=== PATIENT | male | born 1995 | race African-American/Black ===

== ENCOUNTER 2019-12-26 16:34 | Emergency (ER) | payer MEDICAID ==
[~2019-12-26] VITALS: Ht 188 cm; Wt 90.7 kg
[2019-12-26 17:00] VITALS: BP 113/68
[2019-12-26] MEDS ORDERED: Bacitracin Oint UD TOPIC ONE (17:00)
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
[2019-12-26] MEDS ORDERED: IBUPROFEN600 M1 ORAL (17:05)
[2019-12-26] MEDS ORDERED: BACITRACIN15 GM TOPIC (17:05)
[2019-12-26 17:24] VITALS: BP 116/72
== END 2019-12-26 17:24 | disposition home or self-care (01) ==
LOC: EMR 16:58
DX: L03.032 Cellulitis of left toe (principal); M54.2 Cervicalgia; V43.52XA Car driver injured in collision with other type car in traffic accident, initial encounter; Y92.411 Interstate highway as the place of occurrence of the external cause; L60.0 Ingrowing nail; S00.81XA Abrasion of other part of head, initial encounter; S80.812A Abrasion, left lower leg, initial encounter
CPT/HCPCS: 99282

== ENCOUNTER 2020-02-27 15:11 | Emergency (ER) | payer MEDICAID, OTHER ==
[~2020-02-27] VITALS: Ht 188 cm; Wt 95.3 kg
[~2020-02-27 15:11] MED LIST: BACITRACIN15 GM TOPIC; IBUPROFEN600 M1 ORAL
--- NOTE | 2020-02-27 15:35 | Emergency Room Report ---
History of Present Illness General Chief Complaint: Skin Rash/Abscess Source: Patient Present Illness HPI 24-year-old male with no signal past medical history here complaining of swelling and pain perianal x2 days. Denies any fall or injury, shaving of the area. Denies any bleeding, constipation, diarrhea. Has not taken medication for symptom relief. Denies fever and chills. Minimal swelling tenderness to palpation noted right-sided buttocks perianal. No abscess formation noted. 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 COVID-19 Screening: Negative COVID-19 COVID-19 Testing Source: drive thru Patient History Past Medical History: see triage record Past Surgical History: none Pertinent Family History: none Immunizations: UTD Reviewed Nursing Documentation: PMH: Agreed; PSxH: Agreed Nursing Documentation-PMH Past Medical History: No Stated History Review of Systems All Other Systems: negative except mentioned in HPI Physical Exam Vital Signs Date Time Temp Pulse Resp B/P (MAP) Pulse Ox O2 Delivery O2 Flow Rate FiO2 02/27/20 15:13 98.1 85 19 138/73 (94) 98 Room Air Sp02 EP Interpretation: reviewed, normal General Appearance: no apparent distress, alert, GCS 15, non-toxic Head: normocephalic, atraumatic Eyes: bilateral eye normal inspection, bilateral eye PERRL ENT: hearing grossly normal, normal pharynx, no angioedema, normal voice Neck: full range of motion, supple/symm/no masses Respiratory: chest non-tender, lungs clear, normal breath sounds, speaking full sentences Cardiovascular #1: regular rate, rhythm, no edema Cardiovascular #2: 2+ carotid (R), 2+ carotid (L), 2+ radial (R), 2+ radial (L), 2+ dorsalis pedis (R), 2+ dorsalis pedis (L) Gastrointestinal: normal bowel sounds, non tender, soft, non-distended, no guarding, no rebound Rectal: other - Perianal right-sided cellulitis Genitourinary: no CVA tenderness Musculoskeletal: back normal Neurologic: alert, motor strength/tone normal, oriented x3, sensory intact, responsive, speech normal Psychiatric: judgement/insight normal, memory normal, mood/affect normal, no suicidal/homicidal ideation Skin: no rash Lymphatic: no adenopathy Medical Decision Making PA Attestation All diagnosis and treatment plans were discussed and reviewed by my supervising physician Dr. Pearce Diagnostic Impression: Primary Impression: Cellulitis ER Course 24-year-old male with no signal past medical history here complaining of swelling and pain perianal x2 days. Denies any fall or injury, shaving of the area. Denies any bleeding, constipation, diarrhea. Has not taken medication for symptom relief. Denies fever and chills. Minimal swelling tenderness to palpation noted right-sided buttocks perianal. No abscess formation noted. Ddx considered but are not limited to : Cellulitis, Helder cyst, Helder abscess,, superficial infection, abscess Vital signs: are WNL, pt. is afebrile H&PE are most consistent with:cellulitis ORDERS:Bactrim DS, Keflex, Ibuprofen, hydrocortisone cream ED INTERVENTIONS: None required at this time. DISCHARGE: At this time pt. is stable for d/c to home. Will provide printed patient care instructions, and any necessary prescriptions. Care plan and follow up instructions have been discussed with the patient prior to discharge. Take medication as directed, follow primary care provider, at this time no abscess formation noted and no I&D needed however advised patient to return to the emergency room for worsening symptoms Last Vital Signs Date Time Temp Pulse Resp B/P (MAP) Pulse Ox O2 Delivery O2 Flow Rate FiO2 02/27/20 15:13 98.1 85 19 138/73 (94) 98 Room Air Disposition: HOME, SELF-CARE Condition: Stable Scripts Hydrocortisone Acetate (Hydrocortisone Acetate 2.5% Cream) 453.6 Gm Cream..g. 2 GM TP TID, #455 GM Prov: Lauren Toney 02/27/20 Ibuprofen (Ibu) 800 Mg Tablet 800 MG PO TID, #30 TAB Prov: Lauren Toney 02/27/20 Trimethoprim/Sulfamethoxazole 160/800* (BACTRIM DS TABLET*) 1 Each Tablet 1 TAB ORAL TWICE A DAY for 7 Days, #14 TAB Prov: Lauren Toney 02/27/20 Cephalexin* (KEFLEX*) 500 Mg Capsule 500 MG ORAL EVERY 6 HOURS for 7 Days, #28 CAP Prov: Lauren Toney 02/27/20 Patient Instructions: Cellulitis, [id number] Additional Instructions: Take medication as directed, follow primary care provider, if worsening symptoms return to the emergency room Lauren Toney Feb 27, 2020 15:35
[2020-02-27 15:39] VITALS: BP 138/73
[2020-02-27] MEDS ORDERED: CEPHALEXIN500 MG ORAL (15:39)
[2020-02-27] MEDS ORDERED: IBU800 MG PO (15:39)
[2020-02-27] MEDS ORDERED: HYDROCORTISO453.6 G1 TP (15:39)
[2020-02-27] MEDS ORDERED: BACTRIM DS TAB1 EAC1 ORAL (15:39)
[2020-02-27 15:47] VITALS: BP 142/76
== END 2020-02-27 15:47 | disposition home or self-care (01) ==
LOC: EMR 15:30
DX: K61.1 Rectal abscess (principal)
CPT/HCPCS: 99282